=== PATIENT | female | born 1985 ===

== ENCOUNTER 2024-06-02 06:10 | Day surgery (SDC) | payer OTHER ==
[2024-06-02] MEDS ORDERED: MIDAZOLAM HCL/PF 5 MG/ML VIAL IV ONE (08:15)
[2024-06-02] MEDS ORDERED: MEPERIDINE HCL/PF 50 MG/ML VIAL IV ONE (08:15)
[2024-06-02] MEDS ORDERED: DIPHENHYDRAMINE HCL 50 MG/ML VIAL 1ML IV ONE (08:15)
== END 2024-06-02 10:35 | disposition home or self-care (01) ==
LOC: AMB-ENDOS 06:10
PROVIDERS: ATTEND Surgery
DX: K29.50 Unspecified chronic gastritis without bleeding (principal); D13.1 Benign neoplasm of stomach; R10.13 Epigastric pain; E66.09 Other obesity due to excess calories; K44.9 Diaphragmatic hernia without obstruction or gangrene